=== PATIENT | female | born 1975 | race Caucasian/White ===

== ENCOUNTER 2017-08-19 19:02 | Emergency (ER) | payer MEDICAID ==
--- NOTE | 2017-08-19 19:55 | Emergency Department Record ---
History of Present Illness - General Chief Complaint: Back Pain/Injury Stated Complaint: LOWER BACK PAIN Time Seen by Provider: 08/19/17 19:35 Source: Patient Mode of Arrival: Ambulatory Limitations: No limitations - History of Present Illness Initial Comments: pt states she just got out of intermediate and has run out of her robaxin for lower back muscle spasms. shehas chronic pain in her back from a disc for which she has seen a dr. she tried to get in with her dr and was not able to MD Complaint: Back pain Onset/Timin -: Days(s) Severity scale (1-10): 10 Worsens With: Movement, Walking Associated Symptoms: Denies other symptoms - Related Data Home Medications Medication Instructions Recorded Confirmed Last Taken Methocarbamol [Robaxin] 1,500 mg PO BID 08/19/17 08/19/17 Unknown Previous Rx's Medication Instructions Recorded Albuterol Sulfate [Proair Hfa] 1 - 2 puff IH .EVERY 4-6 HOURS PRN 05/21/15 #1 inhaler Ferrous Sulfate [Iron] 325 mg PO DAILY #30 tablet 05/21/15 Nicotine [Nicotine 21Mg] 1 patch TD DAILY #30 patch 06/04/15 Atorvastatin Calcium [Lipitor] 10 mg PO DAILY #30 tab 06/20/15 Beclomethasone Dipropionate [Qvar] 1 puff IH BID #1 inhaler 06/20/15 Escitalopram Oxalate [Lexapro] 10 mg PO DAILY #30 tab 06/20/15 Levothyroxine Sodium [Synthroid] 125 mcg PO DAILY #30 tablet 06/20/15 Meloxicam [Mobic] 15 mg PO DAILY #30 tab 06/20/15 Quetiapine Fumarate [Seroquel] 100 mg PO QHS #30 tablet 06/20/15 Methocarbamol [Robaxin-750] 750 mg PO BID #20 tablet 08/19/17 Allergies Allergy/AdvReac Type Severity Reaction Status Date / Time hydrocodone bitartrate Allergy DIFFICULTY Verified 06/20/15 14:22 [From Vicodin] BREATHING Travel Screening - Travel/Exposure Within Last 30 Days Have you traveled within the last 30 days?: No Review of Systems Reviewed: No additional complaints except as noted below Constitutional: Reports: As per HPI. Denies: Chills, Fever, Malaise, Night sweats, Weakness, Weight change Eyes: Reports: As per HPI. Denies: Eye discharge, Eye pain, Photophobia, Vision change ENT: Reports: As per HPI. Denies: Congestion, Dental pain, Ear pain, Epistaxis , Hearing loss, Throat pain Respiratory: Reports: As per HPI. Denies: Cough, Dyspnea, Hemoptysis, Stridor, Wheezes Cardiovascular: Reports: As per HPI. Denies: Arrhythmia, Chest pain, Dyspnea on exertion, Edema, Murmurs, Orthopnea, Palpitations, Paroxysmal nocturnal dyspnea, Rheumatic Fever, Syncope Endocrine: Reports: As per HPI. Denies: Fatigue, Heat or cold intolerance, Polydipsia, Polyuria Gastrointestinal: Reports: As per HPI. Denies: Abdominal pain, Constipation, Diarrhea, Hematemesis, Hematochezia, Melena, Nausea, Vomiting Genitourinary: Reports: As per HPI. Denies: Abnormal menses, Discharge, Dyspareunia, Dysuria, Frequency, Hematuria, Incontinence, Retention, Urgency Musculoskeletal: Reports: As per HPI. Denies: Arthralgia, Back pain, Gout, Joint swelling, Myalgia, Neck pain Skin: Reports: As per HPI. Denies: Bruising, Change in color, Change in hair/ nails, Lesions, Pruritus, Rash Neurological: Reports: As per HPI. Denies: Abnormal gait, Confusion, Headache, Numbness, Paresthesias, Seizure, Tingling, Tremors, Vertigo, Weakness Psychiatric: Reports: As per HPI. Denies: Anxiety, Auditory hallucinations, Depression, Homicidal thoughts, Suicidal thoughts, Visual hallucinations Hematological/Lymphatic: Reports: As per HPI. Denies: Anemia, Blood Clots, Easy bleeding, Easy bruising, Swollen glands Past Medical History - SOCIAL HISTORY Smoking Status: Current every day smoker Alcohol Use: None Drug Use: None - RESPIRATORY Hx Respiratory Disorders: Yes Hx Asthma: Yes Comment:: allergies - CARDIOVASCULAR Hx Cardio Disorders: No - NEURO Hx Neuro Disorders: Yes Hx Headaches: Yes - GI Hx GI Disorders: No - Hx Genitourinary Disorders: No - ENDOCRINE Hx Endocrine Disorders: Yes Hx Thyroid Disease: Yes (hypothryroid) - MUSCULOSKELETAL Hx Musculoskeletal Disorders: Yes - PSYCH Hx Psych Problems: Yes Hx Depression: Yes - HEMATOLOGY/ONCOLOGY Hx Hematology/Oncology Disorders: No Family Medical History Any Significant Family History?: No Physical Exam - General General Appearance: Alert, Oriented x3, Cooperative, Mild distress - Head Head exam: Normal inspection - Eye Eye exam: Normal appearance, PERRL, EOMI Pupils: Normal accommodation - ENT ENT exam: Normal exam, Mucous membranes moist, Normal external ear exam, Normal orophraynx Ear exam: Normal external inspection. negative: External canal tenderness Nasal Exam: Normal inspection. negative: Discharge, Sinus tenderness Mouth exam: Normal external inspection, Tongue normal Teeth exam: Normal inspection. negative: Dental caries Throat exam: Normal inspection. negative: Tonsillar erythema, Tonsillar exudate - Neck Neck exam: Normal inspection, Full ROM. negative: Tenderness - Respiratory Respiratory exam: Normal lung sounds bilaterally. negative: Respiratory distress - Cardiovascular Cardiovascular Exam: Regular rate, Normal rhythm, Normal heart sounds - GI/Abdominal GI/Abdominal exam: Soft, Normal bowel sounds. negative: Tenderness - Rectal Rectal exam: Deferred - exam: Deferred - Extremities Extremities exam: Normal inspection, Full ROM, Normal capillary refill. negative: Tenderness - Back Back exam: Reports: Muscle spasm, Tenderness. Denies: Full ROM, Rash noted - Neurological Neurological exam: Alert, CN II-XII intact, Normal gait, Oriented X3 - Psychiatric Psychiatric exam: Normal affect, Normal mood - Skin Skin exam: Dry, Intact, Normal color, Warm Course Vital Signs 08/19/17 19:33 Temperature 98.7 F Pulse Rate [ 83 Pulse Ox Probe] Respiratory 20 Rate Blood Pressure 128/85 [Left Arm] Pulse Ox 100 Disposition Disposition: Discharge Clinical Impression: Lumbar paraspinal muscle spasm Disposition: Home, Self-Care Condition: (1) Good Instructions: Low Back Strain (ED), Muscle Spasm (ED) Additional Instructions: follow up with family doctor on tuesday. return sooner if worse. Prescriptions: Methocarbamol [Robaxin-750] 750 mg PO BID #20 tablet Forms: Patient Portal Access Quality - Quality Measures Quality Measures: N/A - Blood Pressure Screening Does Patient Have Any of the Following: No Blood Pressure Classification: Pre-Hypertensive BP Reading Systolic Measurement: 128 Diastolic Measurement: 85 Screening for High Blood Pressure: < Pre-Hypertensive BP, F/U Documented > [ G8950] Pre-Hypertensive Follow-up Interventions: Follow-up with rescreen every year.
== END 2017-08-19 20:15 | disposition home or self-care (01) ==
LOC: ER 19:02
DX: M62.830 Muscle spasm of back (principal)
CPT/HCPCS: 99282

== ENCOUNTER 2018-01-15 23:02 | Emergency (ER) | payer MEDICAID ==
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
[2018-01-16] MEDS ORDERED: IBUPROFEN 600 MG TABLET PO ONE (07:58)
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
== END 2018-01-16 08:10 | disposition home or self-care (01) ==
LOC: ER 23:02
DX: S29.9XXA Unspecified injury of thorax, initial encounter (principal); S39.91XA Unspecified injury of abdomen, initial encounter; S09.90XA Unspecified injury of head, initial encounter; S19.9XXA Unspecified injury of neck, initial encounter; Y04.2XXA Assault by strike against or bumped into by another person, initial encounter; F10.920 Alcohol use, unspecified with intoxication, uncomplicated; F17.210 Nicotine dependence, cigarettes, uncomplicated; Y92.009 Unspecified place in unspecified non-institutional (private) residence as the place of occurrence of the external cause
CPT/HCPCS: 70450; 71250; 72125; 74176; 99283; 99284

== ENCOUNTER 2018-06-05 04:28 | Emergency (ER) | payer MEDICAID ==
--- NOTE | 2018-06-05 04:57 | Emergency Department Record ---
History of Present Illness - General Chief Complaint: Laceration(s) Stated Complaint: LACERATION Time Seen by Provider: 06/05/18 04:34 Source: Patient Mode of Arrival: EMS Limitations: No limitations - History of Present Illness Initial Commments: The patient cut her R 4th finger an hour ago after falling. She did sustain a superficial laceration there. She denies any numbness or tingling but due to being intoxicated it is hard to fully discuss the injury with her. Her Td is UTD. Onset/Timin -: Hour(s) Place: Home Context: Accidental, Fall Associated Symptoms: Pain Treatments Prior to Arrival: Bandage - Brigid Coma Scale Eye Response: (4) Open spontaneously Motor Response: (6) Obeys commands Verbal Response: (5) Oriented [place] Total: 15 - Related Data Hx Tetanus Toxoid Vaccination: Yes Patient Tetanus UTD (within 5 yrs): Yes Previous Rx's Medication Instructions Recorded Levothyroxine Sodium [Synthroid] 125 mcg PO DAILY #30 tablet 06/20/15 Cephalexin [Keflex] 500 mg PO TID #15 cap 06/05/18 Allergies Allergy/AdvReac Type Severity Reaction Status Date / Time hydrocodone bitartrate Allergy DIFFICULTY Verified 06/05/18 04:33 [From Vicodin] BREATHING Travel Screening - Travel/Exposure Within Last 30 Days Have you traveled within the last 30 days?: No - Travel/Exposure Within Last Year Have you traveled outside the [place] in the last year?: No - Additonal Travel Details Have you been exposed to anyone with a communicable illness?: No - Travel Symptoms Symptom Screening: None Review of Systems Constitutional: Denies: Chills, Fever Past Medical History - SOCIAL HISTORY Smoking Status: Current every day smoker Alcohol Use: Occasional Drug Use: Heavy Drug Use Detail:: Marijuana - RESPIRATORY Hx Respiratory Disorders: Yes Hx Asthma: Yes Comment:: allergies - CARDIOVASCULAR Hx Cardio Disorders: No - NEURO Hx Neuro Disorders: Yes Hx Headaches: Yes - GI Hx GI Disorders: No - Hx Genitourinary Disorders: No - ENDOCRINE Hx Endocrine Disorders: Yes Hx Thyroid Disease: Yes (hypothryroid) - MUSCULOSKELETAL Hx Musculoskeletal Disorders: Yes - PSYCH Hx Psych Problems: Yes Hx Depression: Yes - HEMATOLOGY/ONCOLOGY Hx Hematology/Oncology Disorders: No Family Medical History Any Significant Family History?: No Physical Exam - General General Appearance: Alert, Cooperative, No acute distress - Eye Eye exam: Normal appearance, PERRL - Extremities Extremities exam: Normal capillary refill, Tenderness (only at the lac site.). negative: Normal inspection (There is an 8 mm superficial laceration to the distal R 4th finger. There is mild tenderness at the lac site. It is difficult to evaluate distal R 4th finger DIP joint flexion and extension due to the patient being very intoxicated. ), Full ROM (There is decreased flexion and extension of the R 4th finger DIP joint due to pain and also due to the fact the patient is very intoxicated. I do believe she has normal tendon function.) Image of Finger Tip: 1 - 8 mm superficial lac of the R 4th finger. - Neurological Neurological exam: Alert. negative: Motor sensory deficit Course Vital Signs 06/05/18 04:42 Temperature 97.8 F Pulse Rate [ 88 Pulse Ox Probe] Respiratory 22 Rate Blood Pressure 113/77 [Left Arm] Pulse Ox 98 - Reevaluation(s) Reevaluation #1: Procedure note: The R 4th finger was cleansed with betadine and sterile saline. The lac was very superficial and was closed with a single steri strip. There were no complications. There were no FB's seen in the wound and the cut was not completely thru the dermis. 06/05/18 04:56 06/05/18 05:13 Medical Decision Making - Data Complexity MDM Data: X-Ray Ordered and/or Reviewed - Radiology Data Radiology results: Report reviewed (R 4th finger: Neg.) Disposition Disposition: Discharge Clinical Impression: Laceration of finger Qualifiers: Encounter type: initial encounter Finger: index finger Damage to nail status: without damage Foreign body presence: without foreign body Laterality: right Qualified Code(s): S61.210A - Laceration without foreign body of right index finger without damage to nail, initial encounter Disposition: Home, Self-Care Condition: (2) Stable Instructions: Laceration (ED) Additional Instructions: Keep dry for 3 days and keep a bandaid in place during the day. Return to the ER for any signs of infection. Please return to the ER tomorrow for recheck when you are not intoxicated and then we can evaluate the finger tendon function better. Please take the Keflex as directed. Prescriptions: Cephalexin [Keflex] 500 mg PO TID #15 cap Forms: Patient Portal Access Time of Disposition: 05:15 Quality - Quality Measures Quality Measures: N/A - Blood Pressure Screening View Details: Yes Does Patient Have Any of the Following: No Blood Pressure Classification: Normal BP Reading Systolic Measurement: 113 Diastolic Measurement: 77 Screening for High Blood Pressure: < Normal BP, F/U Not Required > [G8783]
--- NOTE | 2018-06-06 07:50 | RADIOLOGY REPORT ---
EXAM: RIGHT FOURTH FINGER HISTORY: LACERATION DISTAL END OF FOURTH DIGIT RIGHT HAND. TECHNIQUE: Three views of the right fourth finger were obtained. Comparison: No prior right hand or right fourth finger series with which to compare. Encounter: Initial. FINDINGS: The PIP joint is held in relative flexion on all views which may just be positional although correlation with range of motion at the PIP joint is suggested. No fracture or dislocation of the right fourth finger identified. No prominent focal soft tissue swelling. IMPRESSION: THE PIP JOINT IS HELD IN RELATIVE FLEXION. THE RIGHT FOURTH FINGER APPEARS OTHERWISE NEGATIVE. [facility]: [id number] [facility]
== END 2018-06-05 05:24 | disposition home or self-care (01) ==
LOC: ER 04:28
DX: S61.214A Laceration without foreign body of right ring finger without damage to nail, initial encounter (principal); W19.XXXA Unspecified fall, initial encounter; Y92.009 Unspecified place in unspecified non-institutional (private) residence as the place of occurrence of the external cause; F17.210 Nicotine dependence, cigarettes, uncomplicated
CPT/HCPCS: 73140; 99283

== ENCOUNTER 2018-12-28 16:18 | Emergency (ER) | payer MEDICAID ==
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
[2018-12-28 17:23] LABS: ABSOLUTE NEUTROPHIL COUNT 5.97; BASO % 0.7 % (0-6); EOS % 0.1 % (0-6); HEMATOCRIT 36.6 % (35.0-47.0); HEMOGLOBIN 11.7 gm/dl (11.6-16.0); LYMPH % 17.9 % (16-45); MEAN CORPUSCULAR HEMOGLOBIN 28.1 pg (27-33); MONO % 8.3 % (0-9); RED BLOOD COUNT 4.16 M/uL (3.80-5.40); RED CELL DISTRIBUTION WIDTH 16.4 % (11.5-14.5); WHITE BLOOD COUNT W/O DIFF 8.2 K/uL (4.2-12.2)
[2018-12-28 17:26] LABS: PLATELET COUNT 82 K/uL (130-400)
[2018-12-28 17:38] LABS: BLOOD UREA NITROGEN 8 mg/dL (6-20); CREATININE 0.8 mg/dL (0.5-0.9); EST GLOMERULAR FILTRATION RATE > 60 mL/min
[2018-12-28 17:39] LABS: TOTAL PROTEIN 7.6 g/dL (6.6-8.7)
[2018-12-28 17:41] LABS: GLUCOSE,RANDOM 99 mg/dL (74-109)
[2018-12-28 17:44] LABS: ALB/GLOB RATIO 1.4 (1.1-1.8); ALBUMIN 4.4 g/dL (4.0-5.0); ALKALINE PHOSPHATASE 98 U/L (35-104); ALT/SGPT 12 U/L (<33); AST/SGOT 25 U/L (10.0-35.0); C-REACTIVE PROTEIN 2.76 mg/dL (<0.5)
[2018-12-28 17:54] LABS: THYROID STIMULATING HORMONE 28.09 uIU/mL (0.270-4.20)
--- NOTE | 2018-12-29 19:37 | RADIOLOGY REPORT ---
EXAM: CHEST 2 VIEWS HISTORY: COUGH. TECHNIQUE: Two-view chest. COMPARISON: CT thorax 01/16/2018 and chest x-ray 01/19/2015. FINDINGS: Frontal and lateral views of the chest show increased lung volumes and lucency in the lung apices, consistent with COPD. Linear band of scar in the right middle lobe. No consolidation. No pleural effusion. Cardiomediastinal structures are within normal limits. Bony structures are unremarkable. IMPRESSION: FINDINGS OF COPD. NO ACUTE ABNORMALITIES. JOB NUMBER: [id number] [facility]
== END 2018-12-28 18:24 | disposition home or self-care (01) ==
LOC: ER 16:18
DX: H60.91 Unspecified otitis externa, right ear (principal); R06.02 Shortness of breath; E03.9 Hypothyroidism, unspecified; F17.210 Nicotine dependence, cigarettes, uncomplicated; R05 Cough
CPT/HCPCS: 71046; 80053; 84443; 85025; 86140; 99283; 99284